=== PATIENT | female | born 1940 | race Caucasian/White ===

== ENCOUNTER 2018-01-14 13:05 | Emergency (ER) | payer OTHER, MEDICARE ==
--- NOTE | 2018-01-14 13:24 | PDOC ---
History of Present Illness <Mirian Brooks - Last Filed: 01/14/18 15:42> - History of Present Illness Initial Comments: 01/14/18 14:08 77-year-old female with a history of bovine aortic valve replacement 4 years ago on Coumadin and asthma presents emergency Department after a fall. She reports she was exiting the train when she slipped on salt and struck the right side of her head and then both of her knees. She denies any loss of consciousness. She reports noticing bleeding by her right eyebrow which prompted her to come to the emergency department. Patient is ambulatory. Reports her INR 1 week ago was 3.1 and she was advised to skip a dose since then. Denies any symptoms of pain at this time and feels that she is at her baseline. She is here with a family member who also reports she is at her baseline. Patient reports she was in her usual state of health prior to the fall , denies fevers, chills, chest pain, shortness of breath, abdominal pain, focal weakness or numbness. Does not remember her last tetanus shot <Merry Deluca - Last Filed: 01/14/18 16:40> - General Chief Complaint: Injury Stated Complaint: FELL Time Seen by Provider: 01/14/18 13:23 Past History <Mirian Brooks - Last Filed: 01/14/18 15:42> <Merry Deluca - Last Filed: 01/14/18 16:40> - Past Medical History Allergies/Adverse Reactions: Allergies Allergy/AdvReac Type Severity Reaction Status Date / Time No Known Allergies Allergy Verified 01/14/18 13:39 Home Medications: Ambulatory Orders Ascorbic Acid [Vitamin C] 500 mg PO DAILY 01/14/18 Budesonide [Pulmicort Flexhaler] 2 puff IH DAILY 01/14/18 Calcium Carbonate/Vitamin D3 [Calcium 600 + Vit D Tablet] 1 each PO DAILY Cholecalciferol (Vitamin D3) [Vitamin D3] 2,000 unit PO DAILY 01/14/18 Metoprolol Succinate [Toprol Xl] 50 mg PO BID 01/14/18 Rosuvastatin Calcium [Crestor] 10 mg PO HS 01/14/18 Vitamin B Complex [B Complex] 1 each PO DAILY 01/14/18 Warfarin Na [Coumadin] 1 mg PO FR 01/14/18 Warfarin Na [Coumadin] 2.5 mg PO SUMOTUWETH 01/14/18 Review of Systems - Review of Systems Comments:: 01/14/18 14:11 GENERAL/CONSTITUTIONAL: No fever or chills. No weakness. +fall HEAD, EYES, EARS, NOSE AND THROAT: No change in vision. No ear pain or discharge. No sore throat. GASTROINTESTINAL: No nausea, vomiting, diarrhea or constipation. GENITOURINARY: No dysuria, frequency, or change in urination. CARDIOVASCULAR: No chest pain or shortness of breath. RESPIRATORY: No cough, wheezing, or hemoptysis. MUSCULOSKELETAL: No joint or muscle swelling or pain. No neck or back pain. SKIN: No rash. + cut to R eyebrow NEUROLOGIC: No headache, vertigo, loss of consciousness, or change in strength/ sensation. ENDOCRINE: No increased thirst. No abnormal weight change. HEMATOLOGIC/LYMPHATIC: No anemia, easy bleeding, or history of blood clots. ALLERGIC/IMMUNOLOGIC: No hives or skin allergy. <Merry Deluca - Last Filed: 01/14/18 16:40> *Physical Exam - Vital Signs Last Vital Signs Temp Pulse Resp BP Pulse Ox 97.9 F 85 16 168/88 96 01/14/18 13:20 01/14/18 13:20 01/14/18 13:20 01/14/18 13:20 01/14/18 13:20 <Mirian Brooks - Last Filed: 01/14/18 15:42> - Physical Exam Comments: 01/14/18 14:13 GENERAL: Awake, alert, and fully oriented, in no acute distress HEAD: 1.5 cm linear hemostatic lac to dermis just inferior to R lateral eyebrow. 1mm superfical abrasion to R mid nasolabial fold. No bony deformities EYES: PERRLA, EOMI, sclera anicteric, conjunctiva clear ENT: Auricles normal inspection, hearing grossly normal, nares patent, oropharynx clear without exudates. Normal occlusion, no loose teeth. Moist mucosa NECK: Normal ROM, supple, no lymphadenopathy, JVD, or masses BACK: No midline cervical, thoracic, or lumbar ttp LUNGS: Breath sounds equal, clear to auscultation bilaterally. No wheezes, and no crackles HEART: Regular rate and rhythm, normal S1 and S2, no murmurs, rubs or gallops ABDOMEN: Soft, nontender, normoactive bowel sounds. No guarding, no rebound. No masses EXTREMITIES: Normal range of motion, no edema. No clubbing or cyanosis. No cords, erythema, or tenderness NEUROLOGICAL: Normal speech, cranial nerves intact, negative pronator drift, 5/ 5 strength in all 4 extremities, normal sensation to light touch in all 4 extremities, normal cerebellar exam, normal gait, normal reflexes and tone SKIN: B/l knees with hemostatic superficial abrasions. Otherwise, warm, Dry, normal turgor, no rashes or lesions noted. <Merry Deluca - Last Filed: 01/14/18 16:40> ED Treatment Course - ADDITIONAL ORDERS Additional order review: Laboratory Results 01/14/18 13:55 PT with INR 37.3 H INR 3.41 H - RADIOLOGY Radiograph Interpretation: 01/14/18 15:[address] as reviewed by Dr. Reyna reports no evidence of acute intracranial hemmorhage or acute calvarial fracture. No mass effect or hydrocephalus. - Medications Given in the ED: ED Medications Discontinued Medications Generic Name Dose Route Start Last Admin Trade Name Freq PRN Reason Stop Dose Admin Diphtheria/Tetanus/Acell Pertussis 0.5 ml 01/14/18 13:48 01/14/18 14:04 Boostrix - IM 01/14/18 13:49 0.5 ml .ONCE ONE Administration <Mirian Brooks - Last Filed: 01/14/18 15:42> Medical Decision Making - Medical Decision Making 01/14/18 14:33 Phone call placed to patient's PCP, Dr. Aye Angeles, at . Awaiting call back 01/14/18 15:03 Second page sent to Dr. Angeles, awaiting call back <Mirian Brooks - Last Filed: 01/14/18 15:42> - Medical Decision Making 01/14/18 14:16 77-year-old female with a history of aortic valve replacement on Coumadin and asthma presents to the emergency Department with a mechanical fall. Vitals remarkable for blood pressure elevated to 160s systolic initially, however on my exam blood pressure was 138/84. Exam remarkable for laceration to the right brow and superfacial abrasions to the right nasolabial fold and bilateral knees. Patient able to ambulate in the ED and neurologically intact. Given pt on Coumadin and recently elevated INR, will check an INR level and obtain a CT scan of the head to evaluate for bleeding. Pt's c-spine is cleared. If negative , will repair laceration to the right brow with Dermabond. Will also update tdap. Patient declines pain medication at this time she denies pain. 01/14/18 15:12 INR elevated to 3.4, pt usually skips coumadin today per her set schedule. We attempted to call Dr. Angeles (PCP who manages coumadin) to inform her of elevated INR. Pt may need to skip tomorrow as well but will await a call back for a better plan. 01/14/18 15:53 CTH negative, wound irrigated with sterile water and approximated with dermabond with no complications. Scar formation discussed with patient. Discussed elevated INR with Dr. Art (covering for Dr. Angeles) who recommends skipping dose today as scheduled as well as tomorrow. He will leave a note for Dr. Angeles to have the INR rechecked on Tuesday. Pt feels well, has no current complaints. In light of stable clinical appearance and no complaints , no need for repeat CT scan in 6 hours. Discussed the latter with Dr. Art as well who agrees. Plan discussed with patient who expresses understanding and requests DC home. Pt given strict return precautions I discussed the physical exam findings, ancillary test results and final diagnoses with the patient. I answered all of the patient's questions. The patient was satisfied with the care received and felt comfortable with the discharge plan and treatment plan. The patient will call their primary care physician within 24 hours to arrange follow-up and will return to the Emergency Department with any new, persistent or worsening symptoms. <Merry Deluca - Last Filed: 01/14/18 16:40> *DC/Admit/Observation/Transfer - Attestations Scribe Attestion: 01/14/18 14:34 Documentation prepared by Mirian Brooks, acting as medical i d sales for Merry Deluca MD. <Mirian Brooks - Last Filed: 01/14/18 15:42> - Discharge Dispostion Admit: No - Attestations Physician Attestion: 01/14/18 16:02 I, Dr. Merry Deluca MD, attest that this document has been prepared under my direction and personally reviewed by me in its entirety. I further attest, that it accurately reflects all work, treatment, procedures and medical decision -making performed by me. <Merry Deluca - Last Filed: 01/14/18 16:40> Diagnosis at time of Disposition: Fall, Head trauma, Laceration - Discharge Dispostion Disposition: HOME Condition at time of disposition: Good - Patient Instructions Printed Discharge Instructions: DI for Laceration Repair With Dermabond, DI for Closed Head Injury Additional Instructions: Keep the wound dry for 48 hours. Wear sunscreen (after 48 hours) to improve on scar formation. As discussed, skip your coumadin dose today and tomorrow and have your INR checked on Tuesday with Dr. Angeles. Also, as discussed, make sure you return to the emergency department immediately if you develop headache, weakness, numbness, new symptoms or any concerning symptoms.
[2018-01-14 13:26] VITALS: BP 168/88; PULSE 85; TEMP 97.9; BMI 25.9
[2018-01-14] MEDS ORDERED: DIPHTH,PERTUSS(ACELL),TET 0.5 ML DISP.SYRIN IM ONE (13:48)
[2018-01-14 14:07] LABS: INR 3.41 (0.82-1.09); PROTHROMBIN TIME (PATIENT) 37.3 SEC (10.2-13.0)
== END 2018-01-14 16:11 | disposition home or self-care (01) ==
LOC: FER 13:05
PROC: 0HQ0XZZ Repair Scalp Skin, External Approach (ICD-10-PCS; principal; 2018-01-14)
PROC: 08QNXZZ Repair Right Upper Eyelid, External Approach (ICD-10-PCS; 2018-01-14)
DX: S01.111A Laceration without foreign body of right eyelid and periocular area, initial encounter (principal); S09.90XA Unspecified injury of head, initial encounter; W18.39XA Other fall on same level, initial encounter; Y93.89 Activity, other specified; Y92.9 Unspecified place or not applicable
CPT/HCPCS: 36415; 70450-TC; 85610; 90715; 99282-25